=== PATIENT | female | born 1955 | race Caucasian/White ===

== ENCOUNTER → 2020-04-29 09:53 | Outpatient (BNVA) | payer MEDICARE, MEDICAID, SELFPAY | PROVIDERS: Family Provider Family Medicine; Visit Provider Surgery | DX: Z20.828 Contact with and (suspected) exposure to other viral communicable diseases (principal) | CPT/HCPCS: 87635 ==

== ENCOUNTER → 2020-05-05 14:00 | Outpatient (BNVA) | payer MEDICARE, MEDICAID, SELFPAY | PROVIDERS: Family Provider Family Medicine; Visit Provider Obstetrics & Gynecology | DX: Z12.4 Encounter for screening for malignant neoplasm of cervix (principal) | CPT/HCPCS: 88175 ==

== ENCOUNTER 2020-05-06 07:16 | Day surgery (SDC) | payer MEDICARE, MEDICAID, SELFPAY ==
[2020-05-02 13:22] VITALS: BMI 26.9
[2020-05-06 07:37] VITALS: BP 132/91; PULSE 90; RESP 16; TEMP 36.9; O2SAT 97
[2020-05-06] MEDS: sodium chloride 0.9% 1,000 ML 30 ML IV (07:50)
--- NOTE | 2020-05-06 07:50 | ANES.PREANE2 ---
Pre-Anesthetic Assessment Pre-Anesthetic Assessment: Height/Weight: Height 1.63 m Weight 71.214 kg Temp Pulse Resp BP Pulse Ox 98.4 F 90 16 132/91 97 05/06/20 07:37 05/06/20 07:37 05/06/20 07:37 05/06/20 07:37 05/06/20 07:37 Preop Diagnosis: screening colonoscopy Proposed Procedure: Operation Date: 05/06/20 08:30 Proposed Procedures p Colonoscopy 15535 Z86.010(Not Applicable) - Jevon Wisdom MD Was Beta Rashida taken within 24 hours: N/A Last intake: Intake Last Liquid Date 05/05/20 Last Liquid Time 21:30 Last Solid Date 05/04/20 Last Solid Time 18:00 Social: Social History: Tobacco and No alcohol Exam: Pre-Anes Outpt Exam: alert, oriented x 3 and regular rate & rhythm Airway: Submandibular: WNL Cervical ROM: WNL MP: 2 Dentition: False Pulmonary: Pulmonary: COPD CV/HEM: CV/HEM: HTN Musc/skel: Comments: Chronic pain Anesthetic Plan: ASA status: 3 Anesthesia: MAC Risk of > 500 ml blood loss (7ml/kg in children): No PFSH Anesthesia PFSH: Medical History Anxiety Colon polyps Depression Fibromyalgia History of breast cancer Surgical History History of colonoscopy with polypectomy (~2014) History of partial mastectomy of right breast History of tubal ligation Family History Denies family history of Anesthesia complication Bleeding disorder Social History Smoking and tobacco status: current every day smoker cigarettes Second hand smoke exposure: No Alcohol intake: never Adopted: No Caregiver/support person: Yes Data Anesthesia Cardiac Studies: No Data to Display
[2020-05-06 09:12] VITALS: BP 119/75; PULSE 83; RESP 18; TEMP 36.2; O2SAT 97
--- NOTE | 2020-05-06 09:13 | W.PM.OPSUD ---
Surgery/Procedure H&P Update DATE OF PROCEDURE: May 06, 2020 DATE H&P PERFORMED: 04/07/20 PREOP DIAGNOSIS: screening colonoscopy PLANNED PROCEDURE: Operation Date: 05/06/20 08:30 Proposed Procedures p Colonoscopy 79673 Z86.010(Not Applicable) - Jevon Wisdom MD
--- NOTE | 2020-05-06 09:15 | ANE.PACU2 ---
Inpatient post-anesthesia follow up: Airway intact: Yes Vital signs: Temperature 98.4 F Pulse Rate 90 Respiratory Rate 16 Blood Pressure 132/91 Pulse Oximetry 97 Oxygen Delivery Me thod Room Air Oxygen Flow Rate Fraction of Inspir ed Oxygen Hydration adequate: Yes Nausea and vomiting: No Mental status: Baseline
[2020-05-06 09:30] VITALS: BP 149/81; PULSE 79; RESP 18; O2SAT 98
--- NOTE | 2020-05-06 15:35 | ANE.PACU2 ---
Inpatient post-anesthesia follow up: Airway intact: Yes Vital signs: Temperature 97.1 F Pulse Rate 79 Respiratory Rate 18 Blood Pressure 149/81 Pulse Oximetry 98 Oxygen Delivery Me thod Room Air Oxygen Flow Rate Fraction of Inspir ed Oxygen Hydration adequate: Yes Nausea and vomiting: No Pain level: 1 Mental status: Baseline
== END 2020-05-06 09:45 | disposition home or self-care (01) ==
PROVIDERS: PCP Family Medicine; Visit Provider Surgery
PROC: 0DJD8ZZ Inspection of Lower Intestinal Tract, Via Natural or Artificial Opening Endoscopic (ICD-10-PCS; CPT 45378; principal; 2020-05-06 08:30)
DX: Z12.11 Encounter for screening for malignant neoplasm of colon (principal); Z86.010 Personal history of colon polyps; D12.0 Benign neoplasm of cecum; D12.2 Benign neoplasm of ascending colon; K57.30 Diverticulosis of large intestine without perforation or abscess without bleeding; K64.8 Other hemorrhoids; J44.9 Chronic obstructive pulmonary disease, unspecified; I10 Essential (primary) hypertension; M79.7 Fibromyalgia; Z85.3 Personal history of malignant neoplasm of breast; F17.210 Nicotine dependence, cigarettes, uncomplicated
CPT/HCPCS: 12345; 45380; 88305; J2704; J7030

== ENCOUNTER → 2020-05-28 11:35 | Outpatient (BNVA) | payer MEDICARE, MEDICAID, SELFPAY | PROVIDERS: PCP Nurse Practitioner Family; Visit Provider Obstetrics & Gynecology | DX: N81.4 Uterovaginal prolapse, unspecified (principal); Z01.812 Encounter for preprocedural laboratory examination | CPT/HCPCS: 87635 ==

== ENCOUNTER 2020-06-03 09:30 | Observation (INO) | payer MEDICARE, MEDICAID, SELFPAY ==
[2020-05-26 14:23] VITALS: BMI 27.1
--- NOTE | 2020-05-26 14:42 | ANES.PREANE2 ---
Pre-Anesthetic Assessment Pre-Anesthetic Assessment: Height/Weight: Height 1.63 m Weight 71.668 kg Preop Diagnosis: screening colonoscopy Proposed Procedure: Operation Date: 06/03/20 07:00 Proposed Procedures p Total Vaginal Hysterectomy 78492 [id number] N81.4 N81.10(Not Applicable) - MD francisco Sanford bilateral Salpingo-Oophorectomy (Vaginal)(Bilateral) - MD francisco Sanford possible Anterior Colporrhaphy(Not Applicable) - MD francisco Sanford possible Posterior Colporrhaphy(Not Applicable) - MD francisco Sanford Possible suburetral single incision sling(Not Applicable) - Robby Hatfield MD Familial anesthetic complications: None Social: Social History: Tobacco and No alcohol Exam: Pre-Anes Outpt Exam: alert, oriented x 3, clear to auscultation bilaterally and regular rate & rhythm Airway: MP: 3 Dentition: False and Other ( bad teeth in the back ) Pulmonary: Pulmonary: COPD and Cough CV/HEM: CV/HEM: Afib and HTN Musc/skel: Musc/skel: Fibromyalgia, Lower Back Pain and OA/DJD Neuropsych: Neuropsych: TIA (in her 30s and 4 years ago) Comments: R sided eyebrow droops Anesthetic Plan: ASA status: 3 Anesthesia: General Risk of > 500 ml blood loss (7ml/kg in children): No PFSH Anesthesia PFSH: Medical History Anxiety Colon polyps Depression Fibromyalgia History of breast cancer Uterine prolapse Surgical History History of colonoscopy with polypectomy (05/06/20) 2015 History of partial mastectomy of right breast History of tubal ligation Family History Denies family history of Anesthesia complication Bleeding disorder Social History Smoking and tobacco status: current every day smoker cigarettes Second hand smoke exposure: No Alcohol intake: never Adopted: No Caregiver/support person: Yes Female Reproductive History: Date of last menstrual period: 05/06/05 Data Anesthesia Cardiac Studies: No Data to Display
[2020-06-03] VITALS (18 sets, daily range): BP systolic 95–148; BP diastolic 57–89; PULSE 71–96; RESP 14–20; TEMP 36.1–37.1; O2SAT 93–100
[2020-06-03] MEDS: sodium chloride 0.9% 1,000 ML 30 ML IV (06:31)
[2020-06-03] MEDS: CELEcoxib 200 mg Capsule 400 MG PO (06:41)
--- NOTE | 2020-06-03 06:49 | P.ANESUD_ITS ---
Pre-Anesthetic Update Pre-Anesthetic Assessment: Date of Surgery/Procedure: 06/03/20 Preop Elana gnosis: uterine prolapse Proposed Procedure: Operation Date: 06/03/20 07:00 Proposed Procedures p Total Vaginal Hysterectomy 74955 [id number] 49076 N81.4 N81.10(Not Applicable) - MD francisco Sanford bilateral Salpingo-Oophorectomy (Vaginal)(Bilateral) - MD francisco Sanford possible Anterior Colporrhaphy(Not Applicable) - MD francisco Sanford possible Posterior Colporrhaphy(Not Applicable) - MD francisco Sanford Possible suburetral single incision sling(Not Applicable) - Robby Hatfield MD Any changes to Pre-Anesthetic Assessment?: No Last Intake: Intake Last Liquid Date 06/02/20 Last Liquid Time 18:00 Last Solid Date 06/02/20 Last Solid Time 18:00 Vitals: Temperature 97.0 F L 06/03/20 06:17 Pulse Rate 76 06/03/20 06:17 Respiratory Rate 18 06/03/20 06:17 Blood Pressure 142/89 06/03/20 06:17 Blood Pressure Johanny n 106 06/03/20 06:17 Pulse Oximetry 97 06/03/20 06:17 Oxygen Delivery Me thod 06/03/20 06:16 Exam: Pre-Anes Outpt Exam: alert, oriented x 3, clear to auscultation bilaterally and regular rate & rhythm Cardiac Studies: No Data to Display
[2020-06-03] MEDS: ketorolac 30 mg/mL INJ IVP ×3 (06:54→19:52)
--- NOTE | 2020-06-03 06:54 | W.PM.OPSUD ---
Surgery/Procedure H&P Update DATE OF PROCEDURE: June 03, 2020 DATE H&P PERFORMED: 04/25/20 H&P UPDATE INFORMATION: I have reviewed H&P completed within last 30 days, I have examined patient prior to procedure and No changes to prior documentation CHANGES TO PREVIOUS DOCUMENTATION: There are no changes to H&P PREOP DIAGNOSIS: uterine prolapse PRIMARY INDICATION FOR PROCEDURE: Symptomatic uterine prolapse PLANNED PROCEDURE: Operation Date: 06/03/20 07:00 Proposed Procedures p Total Vaginal Hysterectomy [id number] 13749 N81.4 N81.10(Not Applicable) - Lona Nash MD s bilateral Salpingo-Oophorectomy (Vaginal)(Bilateral) - Lona Nash MD s possible Anterior Colporrhaphy(Not Applicable) - Lona Nash MD s possible Posterior Colporrhaphy(Not Applicable) - Robby Hatfield MD s Possible suburetral single incision sling(Not Applicable) - Robby Hatfield MD
[2020-06-03] MEDS: ceFOXitin 2,000 MG in sodium chloride 0.9% (plus) 50 ML 100 MG IV (07:08)
[2020-06-03 07:18] LABS: Basophils # 0.1 10^3/uL (0.0-0.1); Basophils % 1.4 %; Eosinophils # 0.2 10^3/uL (0.0-0.8); Eosinophils % 3.6 %; Hematocrit 42.5 % (37.0-47.0); Lymphocytes # 1.5 10^3/uL (0.8-4.8); Lymphocytes % 23.4 %; Mean Corpuscular HGB Conc 32.9 g/dL (30.0-36.0); Mean Corpuscular Hemoglobin 31.4 pg (28.0-34.0); Mean Corpuscular Volume 95.3 fL (81-99); Mean Platelet Volume 11.1 fL (7.4-10.4); Monocytes # 0.3 10^3/uL (0.2-0.9); Monocytes % 4.9 %; Neutrophils # 4.38 10^3/uL (1.8-7.7); Neutrophils % 66.5 %; Nucleated Red Blood Cells % 0 %; Platelet Count 293 10^3/cmm (130-400); Red Blood Count 4.46 10^6/uL (4.1-5.3); White Blood Count 6.6 10^3/uL (4.0-10.0)
[2020-06-03 07:40] LABS: Blood Urea Nitrogen 13 mg/dL (8-23); Calcium 9.3 mg/dL (8.5-10.5); Carbon Dioxide 25 mmol/L (22-29); Chloride 105 mmol/L (98-107); Glucose 87 mg/dL (65-115); Osmolality Calculated 285 mOsm/kg (285-295); Sodium 138 mmol/L (136-145)
[2020-06-03] MEDS: vasopressin 20 unit/mL INJ INJECTION (08:27)
--- NOTE | 2020-06-03 09:28 | P.OP_ITS ---
Operative Report Date of procedure: June 03, 2020 Pre-op Diagnosis: uterine prolapse Post-op diagnosis: same Post-op Findings: grade 3 uterine prolapse Procedure Done: Total vaginal hysterectomy Specimens removed/disposition: uterus Pathology: uterus Surgeon: Lona Nash [employer] Specialist: Robby Hatfield Anesthesia: General Estimated blood loss (mL): 40 IV fluids (mL): 1,400 Urine output (mL): 400 Complications: none Condition: stable Disposition: PACU Procedure: Patient was taken to the operating room was administered and found to be adequate. She is prepped and draped in the normal sterile fashion in the dorsal lithotomy position in [facility]. A weighted speculum was placed in the vagina and the anterior lip of the cervix grasped with a Moscoso tenaculum. A Clark catheter was placed. A Moscoso tenaculum was used on the posterior cervix as well. 4 ml of dilute vasopressin was injected subcutaneously at the vesicovaginal junction. A circumferential incision was made at the vesicovaginal junction and the vaginal mucosa reflected cephalad. The posterior peritoneum was entered sharply with the Metzenbaum scissors. The anterior peritoneum was entered sharply with the Metzenbaum scissors. The Liv clamp was placed over the uterosacral ligaments. The ligaments were clamped cut and suture-ligated bilaterally. The uterine arteries and cardinal ligaments were clamped cut and suture-ligated bilaterally. The utero-ovarian ligaments were clamped cut and suture-ligated bilaterally and the specimen was removed. At this point the surgery was turned over to Dr. Hatfield who performed a uterosacral vault suspension. At the conclusion of the surgery the Clark catheter was replaced and vaginal packing was placed. The patient tolerated the procedure well. Sponge lap and needle counts were correct x3. She was taken the recovery room in stable condition.
--- NOTE | 2020-06-03 09:32 | P.OP_ITS ---
Operative Report Date of procedure: June 03, 2020 Pre-op Diagnosis: Incomplete uterine prolapse Post-op Diagnosis: Incomplete uterovaginal prolapse Procedure Done: Vaginal colpopexy-intraperitoneal approach (uterosacral ligament suspension) Specimens removed/disposition: None Surgeon: Robby Hatfield Anesthesia: General Estimated blood loss (mL): 40 (Total) IV fluids (mL): 1,400 (Total) Complications: None Findings: Third-degree uterine prolapse under anesthesia with cystocele. Brief History: Patient is a 65-year-old female, 3, para 3-0-0-3, who is postmenopausal. She had presented to the office to Dr. Nash due to prolapse complaints. She was evaluated by Dr. Nash who found her to have a second-degree uterine prolapse with second-degree cystocele and third-degree rectocele. She was planning on performing a vaginal hysterectomy with possible anterior and posterior repair. She felt that the patient also would need a vaginal vault suspension, which she does not perform. As a result, I saw her in the office as well and discussed the vault suspension with her. She wished to proceed with t he planned surgery including the vault suspension. Procedure: Patient was taken to the operating room where she was placed under general anesthesia. She was prepped and draped in usual sterile fashion dorsal supine position with legs in Kenny style stirrups. Sequential compression boots have been placed prior to starting the case. Clark catheter was inserted. Dr. Nash performed a vaginal hysterectomy. Please see her dictation regarding this portion of the procedure. The case was then turned over to myself. The bowel was packed with wet laparotomy sponges. The right uterosacral ligament was palpated and identified. Using 0 Ethibond suture, stitch was placed high into the uterosacral ligament on the right side. Care was taken not to incorporate the ureter or bowel into the stitch. On the left side, the uterosacral ligament was palpated and identified. 0 Ethibond suture was used and a stitch placed high into the uterosacral ligament on the left side. Care was again taken not to incorporate the ureter or bowel into the stitch. Clark catheter was removed and cystoscopy performed. Both ureters were noted to be effluxing urine well without tension applied to the suspension stitches. Attention was then applied to the stitches and both ureters were noted to be effluxing urine well. Indigo carmine had been given intravenously to assist with identification of this. The bladder was thoroughly inspected with no suture material or masses noted within the bladder. Bladder was drained and Clark catheter reinserted. The 0 Ethibond sutures were secured to the vaginal cuff both anteriorly and posteriorly on the ipsilateral sides. The vaginal cuff was then closed in a horizontal fashion with interrupted stitches of 0 Vicryl. The peritoneum was incorporated into the stitches. Once the cuff was closed, the Ethibond stitches were tied, elevating the cuff well. Clark catheter was removed and cystoscopy again performed. Both ureters were noted to be effluxing urine well. Bladder was drained and Clark catheter reinserted. The vagina was inspected and the cystocele was eliminated with the vault suspension. She had a minimal rectocele left afterwards as well and decision was made that she did not need any further repair anterior posteriorly at this time. Patient tolerated the procedures well. Sponge, needle and instrument counts were correct. Drains: Clark catheter Postoperative status: Patient was transferred recovery in satisfactory condition.
[2020-06-03] MEDS: fentaNYL 50 mcg/mL INJ 2mL IVP (09:35)
[2020-06-03] MEDS: morphine 4 mg/mL SDV 1 mL IVP (10:34)
[2020-06-03] MEDS: HYDROcodone-acetaminophen 5-325 mg Tablet PO ×2 (13:06→19:51)
[2020-06-03] MEDS: dextrose 5%-lactated ringers 1,000 ML 125 ML IV (15:16)
--- NOTE | 2020-06-03 16:38 | ANE.PACU2 ---
Inpatient post-anesthesia follow up: Airway intact: Yes Vital signs: Temperature 98.6 F Pulse Rate 79 Respiratory Rate 14 Blood Pressure 117/74 Pulse Oximetry 93 Oxygen Delivery Me thod Room Air Oxygen Flow Rate 1 Fraction of Inspir ed Oxygen Hydration adequate: Yes Nausea and vomiting: No Pain level: 1 Mental status: Baseline
[2020-06-03] MEDS: docusate sodium 100 mg Capsule PO (17:34)
[2020-06-04] MEDS: dextrose 5%-lactated ringers 1,000 ML 125 ML IV
[2020-06-04] MEDS: ketorolac 30 mg/mL INJ IVP ×2 (01:43→07:37)
[2020-06-04 04:00] VITALS: BP 133/80; PULSE 84; RESP 14
[2020-06-04 06:34] LABS: Hematocrit 36.6 % (37.0-47.0); Hemoglobin 12.3 g/dL (11.5-15.3); Mean Corpuscular HGB Conc 33.6 g/dL (30.0-36.0); Mean Corpuscular Hemoglobin 31.8 pg (28.0-34.0); Mean Corpuscular Volume 94.6 fL (81-99); Platelet Count 225 10^3/cmm (130-400); Red Blood Count 3.87 10^6/uL (4.1-5.3); Red Cell Distribution Width 12.1 % (12.1-15.1); White Blood Count 6.8 10^3/uL (4.0-10.0)
[2020-06-04 06:49] VITALS: BP 140/82; PULSE 84; RESP 16; TEMP 36.8
[2020-06-04] MEDS: gabapentin 300 mg Capsule PO (07:38)
[2020-06-04] MEDS: venlafaxine ER (24HR) 150 mg Capsule PO (07:38)
[2020-06-04] MEDS: dilTIAZem ER (24HR) 180 mg Capsule 360 MG PO (07:38)
[2020-06-04] MEDS: lisinopril 5 mg Tablet PO (07:38)
[2020-06-04] MEDS: docusate sodium 100 mg Capsule PO (07:38)
--- NOTE | 2020-06-04 09:49 | PM.DCS ---
Discharge Providers Date of Admission: 06/03/20 09:30 Date of Discharge: June 04, 2020 Attending Provider at Admission: Robby Hatfield MD Attending Provider at Discharge: Robby Hatfield MD Primary Care Provider: MAGDALENA Yun Diagnoses at Discharge Discharge Diagnosis (1) Incomplete uterovaginal prolapse: Status: Acute (2) Cystocele: Status: Acute (3) Rectocele: Status: Acute (4) Uterine prolapse: Status: Acute Reason for Visit Reason for Visit: total vaginal hysterectomy Hospital Course Hospital Course The patient was admitted for vaginal hysterectomy and vault suspension for uterine prolapse. She also had a cystocele and rectocele which were reduced after the suspension. She did well postoperatively and was ready for discharge on day #1 POD#1 The patient is doing well this morning. She doesn't have any complaints. Vaginal packing was removed as well as albert catheter. She is ready for discharge. Plan: Home in stable condition follow up in 1 week Physical Exam Const: COMMON NORMALS: no acute distress, average body habitus, patient oriented x3, no limitations, healthy appearing, alert and well nourished GENERAL APPEARANCE: cooperative, comfortable and well kempt ORIENTATION/CONSCIOUSNESS: Yes awake, Yes oriented to person, Yes oriented to place and Yes oriented to time Neck/C-Spine: COMMON NORMALS: no JVD Resp: COMMON NORMALS: normal respiratory effort and No retractions EFFORT & INSPECTION: Yes able to speak in complete sentences Cardio: COMMON NORMALS: no JVD, regular rate and regular rhythm RATE: regular rate RHYTHM: regular rhythm GI: COMMON NORMALS: Normal to inspection, nondistended, normoactive bowel sounds present, Soft to palpation and non-tender PALPATION: Yes Soft to palpation Extremity: COMMON NORMALS: normal to inspection and full ROM Neuro: COMMON NORMALS: patient oriented x3 SENSORIUM/ORIENTATION: Yes alert, Yes oriented to person, Yes oriented to place and Yes oriented to time Psych: APPEARANCE: Yes well kempt Skin: COMMON NORMALS: no rashes or lesions noted GENERAL SKIN EXAM: no rashes or lesions noted Urinary Catheter Management^: Albert: Cath Placed During This Visit: yes Reason for Continuing Indwelling Catheter: Perioperative Use in Selected Surgeries Urinary Catheter Date of Insertion: 06/03/20 Urinary Catheter Time of Insertion: 07:30 Discharge Data Data Completed and Pending: Pending at discharge Category Date Time Status Urine Culture Sae iglesias Lab 06/03/20 06:30 Results Pathology: Surgic al [PTH] Routine Pth 06/03/20 09:22 Received Labs from last 24 hours 06/04/20 06:15 WBC 6.8 RBC 3.87 L Hgb 12.3 Hct 36.6 L MCV 94.6 MCH 31.8 MCHC 33.6 RDW 12.1 Plt Count 225 MPV 11.0 H Vitals: Last Vital Signs Temp 98.2 F 06/04/20 06:49 Pulse 84 06/04/20 06:49 Resp 16 06/04/20 06:49 BP 140/82 06/04/20 06:49 Pulse Ox 95 06/03/20 17:05 Discharge Plan Discharge Patient Disposition: Home Condition: Stable Prescriptions: No Action diltiazem HCl 360 mg capsule,extended release 24 hr 360 mg PO DAILY RF: 0 lisinopril 5 mg tablet 5 mg PO DAILY RF: 0 meloxicam 15 mg tablet 15 mg PO DAILY RF: 0 venlafaxine 150 mg capsule,extended release 24hr 150 mg PO DAILY RF: 0 cyclobenzaprine 10 mg tablet 10 mg PO TID PRN (Reason: Spasms) RF: 0 lorazepam 0.5 mg tablet 0.5 mg PO BID PRN (Reason: Anxiety) RF: 0 gabapentin 600 mg tablet 300 mg PO TID PRN (Reason: Pain) RF: 0 Referrals: Robby Hatfield MD [Physician] - 06/11/20 12:45 pm (* Your incision check is with Dr. 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
[2020-06-04 09:50] VITALS: BP 120/81; PULSE 89; RESP 15; TEMP 36.7
[2020-06-04 11:07] VITALS: BP 120/81; PULSE 89; RESP 15; TEMP 36.7
--- NOTE | 2020-06-04 11:15 | PC.NURSE ---
Prescription for amoxicillin 500mg TID x7 days called to [facility] pharmacy. also called patient and discussed positive urine culture and that I would be calling a prescription for her.
== END 2020-06-04 11:05 | disposition home or self-care (01) ==
LOC: OBGYN 09:31
PROVIDERS: Obstetrics & Gynecology; Admitting Provider Obstetrics & Gynecology; PCP Nurse Practitioner Family; Visit Provider Obstetrics & Gynecology
PROC: (CPT 58260; principal; 2020-06-03 07:00)
PROC: 0TJB8ZZ Inspection of Bladder, Via Natural or Artificial Opening Endoscopic (ICD-10-PCS; CPT 52000; 2020-06-03 07:00)
PROC: 0USG4ZZ Reposition Vagina, Percutaneous Endoscopic Approach (ICD-10-PCS; CPT 57425; 2020-06-03 07:00)
DX: N81.2 Incomplete uterovaginal prolapse (principal); N81.6 Rectocele; N81.4 Uterovaginal prolapse, unspecified; J44.9 Chronic obstructive pulmonary disease, unspecified; I48.91 Unspecified atrial fibrillation; I10 Essential (primary) hypertension; M79.7 Fibromyalgia; M19.90 Unspecified osteoarthritis, unspecified site; Z86.73 Personal history of transient ischemic attack (TIA), and cerebral infarction without residual deficits; F17.210 Nicotine dependence, cigarettes, uncomplicated
CPT/HCPCS: 57283; 58260; 12345; 36415; 80048; 85025; 85027; 87077; 87086; 87186; 88305; 96361; 96365; 96375; G0378; J0131; J0690; J0694; J1885; J1940; J2250; J2270; J2370; J2704; J3010; J3490; J7030

== ENCOUNTER 2022-06-17 08:34 | Outpatient (CLI) | payer MEDICARE, MEDICAID, SELFPAY ==
--- NOTE | 2022-06-17 08:45 | MM_ITS ---
WS: [id number] DIAGNOSTIC BILATERAL DIGITAL BREAST TOMOSYNTHESIS MAMMOGRAPHY WITH CAD HISTORY: HX BREAST CA COMPARISON: 08/21/2018, 07/23/2017 TECHNIQUE: Bilateral craniocaudad, mediolateral oblique, and mediolateral views are submitted with to mosynthesis and SM. Computer aided detection utilized. Breast composition: There are scattered areas of fibroglandular density. Volume loss in the RIGHT lori ast due to surgery. There is an area of distortion and spiculation and volume loss which is stable in the posterior LEFT breast. This is the site of the prior biopsy. No adverse changes are identified. MM/[id number] IMPRESSION: BI-RADS: 2-Benign FOLLOW UP: 1 Year Follow-up
== END 2022-06-17 08:35 | disposition home or self-care (01) ==
LOC: RAD 08:38
PROVIDERS: PCP Nurse Practitioner Family; Visit Provider Nurse Practitioner Family
DX: Z85.3 Personal history of malignant neoplasm of breast (principal)
CPT/HCPCS: 77062; G0279

== ENCOUNTER 2023-08-24 09:10 | Outpatient (CLI) | payer MEDICARE, MEDICAID, SELFPAY ==
--- NOTE | 2023-08-24 09:20 | MM_ITS ---
WS: [id number] BILATERAL 3D TOMOSYNTHESIS DIGITAL DIAGNOSTIC MAMMOGRAPHY WITH CAD CLINICAL INFORMATION: HX OF BREAST CA HISTORY: RIGHT lumpectomy. COMPARISON: 06/17/2022 TECHNIQUE: Bilateral CC, MLO, and ML views. FINDINGS: Scattered fibroglandular densities bilaterally. Postoperative changes of lumpectomy with parenchymal scarring RIGHT breast. A few incidental associated calcifications. LEFT breast is unchanged. No suspicious focal mass, asymmetry, calcifications, or architectural distortion. No evidence of [place]. MM/[id number] IMPRESSION: BI-RADS: 2-Benign FOLLOW UP: 1 Year Follow-up Recommend return to annual diagnostic mammography.
== END 2023-08-24 09:11 | disposition home or self-care (01) ==
LOC: RAD 09:12
PROVIDERS: PCP Nurse Practitioner Family; Visit Provider Nurse Practitioner Family
DX: Z85.3 Personal history of malignant neoplasm of breast (principal); R92.323 Mammographic fibroglandular density, bilateral breasts
CPT/HCPCS: 77062; G0279